=== PATIENT | female | born 1960 | race Caucasian/White ===

== ENCOUNTER → 2017-02-04 | Day surgery (SDC) | payer OTHER ==
--- NOTE | 2017-02-07 15:07 | PATH ---
Surgical Pathology Report Patient Name: IMAIN RUFF [facility]. Rec. #: [id number] /Age/Gender: 1960 (Age: 56) / F Account: [id number] Location: [place] Pathology Taken: 02/04/2017 Received: 02/07/2017 Reported: 02/07/2017 Physicians: Jass Villatoro M.D. Specimen(s) Received LEFT BREAST CORE BIOPSY 2:00 Clinical History Palpable mass; US: highly suspicious/malignant Final Diagnosis BREAST, LEFT, 2:00, 8-10 CM FROM NIPPLE, US GUIDED CORE BIOPSY: INVASIVE DUCTAL CARCINOMA, MODERATELY DIFFERENTIATED (SEE COMMENT). Comment: The greatest extent of invasive carcinoma in one core is 0.5 cm. ER, WV, Her2 IHC and Ki67 studies are pending; results will be reported separately in an addendum. Electronically Signed Davonte Mendiola M.D. Addendum Reported: 02/08/2017 Addendum Diagnosis Results of Estrogen Receptor (ER) and Progesterone Receptor (WV) studies performed at [facility] are as follows: ER (clone 6F11 mouse monoclonal antibody by [employer]): >95% nuclear staining with strong intensity (Positive). WV (clone16 mouse monoclonal antibody by [employer]): ~3-5% nuclear staining with moderate intensity (Positive). Positive and negative controls (internal if applicable) show appropriate results. Formalin fixation and cold ischemic times are within current ASCO/CAP recommendations for ER, WV and Her2 testing. Immunohistochemical stain for e-cadherin performed and interpreted at [facility] shows strong membranous staining in tumor cells supporting ductal phenotype. Davonte Mendiola M.D. Addendum Reported: 02/09/2017 Addendum Diagnosis Results of Her2 (IHC) & Ki-67 studies performed at [place], [place] ([id number]) are as follows: Her2 IHC (EP3 from [employer], formerly known as [id number], using Colon Polymer Refine detection kit): 2+ (Equivocal) Ki-67: up to 15-20% (Intermediate proliferation index) Results of Her2 FISH studies will be reported separately in an addendum. Positive and negative controls (internal if applicable) show appropriate results. Davonte Mendiola M.D. Addendum Reported: 02/14/2017 Addendum Diagnosis Results of Her2 FISH studies performed on block at [place], [place] ([id number]) are as follows: Her2: 2.5 CEP17: 1.6 Ratio: 1.6 Interpretation: Negative Davonte Mendiola M.D. Gross Description Received in formalin, labeled" left breast biopsy 2N 8-10" are multiple fragments of lemus tissue ranging from 0.4 to 0.7 cm in length and averaging 0.1 cm in diameter admixed with clotted blood. Submitted entirely in one cassette. Time to fixation: <1min Formalin fixation time: ~64h
--- NOTE | 2017-02-07 21:21 | OP ---
DATE OF OPERATION: 02/04/2017 PREOPERATIVE DIAGNOSES: Left breast mass, 2 o'clock, 8 to 10 cm from the nipple. POSTOPERATIVE DIAGNOSIS: Left breast mass, 2 o'clock, 8 to 10 cm from the nipple. PROCEDURE: Left ultrasound-guided core biopsy with bowtie clip placement. ANESTHESIA: Local. ATTENDING SURGEON: Edwin Manzo MD ESTIMATED BLOOD LOSS: Minimal. COMPLICATIONS: None. PROCEDURE: Patient was made aware of the risks and benefits of the procedure and consented. She was placed in the supine position. Under sterile conditions, with 1% lidocaine for local anesthesia, a small brannon was made in the skin. Using a 13-gauge suction biopsy device via lateral approach under ultrasound guidance, multiple cores were obtained and submitted to Pathology. Likewise under ultrasound guidance, a bowtie clip was placed into the biopsy region. Patient tolerated the procedure well. Steri-Strips and a sterile bandage was applied. We will contact her with the results. EDWIN MANZO M.D. [id number]
== END | disposition home or self-care (01) ==
LOC: FRADUS-SUR 15:47
PROVIDERS: ATTEND Surgery Surgical Oncology
PROC: 0HBU3ZX Excision of Left Breast, Percutaneous Approach, Diagnostic (ICD-10-PCS; principal; 2017-02-04)
DX: N63 Unspecified lump in breast (principal); C50.412 Malignant neoplasm of upper-outer quadrant of left female breast
CPT/HCPCS: 19083; 88305-TC; 88342-TC

== ENCOUNTER → 2017-05-31 | Day surgery (SDC) | payer OTHER ==
--- NOTE | 2017-05-17 11:06 | HP ---
Admitting History and Physical - Primary Care Physician PCP: Edwin Manzo - Admission Chief Complaint: left breast cancer History of Present Illness: Patient is a 57 yo female who was noted to have a left UOQ on self exam x 1.5 yrs. Mammogram and US confirmed a 2.0 cm irregular mass at 2 oclock. US guided core bx of this lesion was positive for invasive ductal carcinoma. ER/ TN positive HER 2 negative. MRI was c/w known cancer wtihout evidence of contralateral dz. Patient is now presenting for left WE with NL, SNBx, poss ANDx and intraop radiation. History Source: Patient Limitations to Obtaining History: No Limitations - Past Medical History Cardiovascular: Yes: HTN Home Medications - Allergies Allergies/Adverse Reactions: Allergies Allergy/AdvReac Type Severity Reaction Status Date / Time No Known Allergies Allergy Verified 05/17/17 11:06 - Home Medications Home Medications (free text): amlodipine Family Disease History - Family Disease History Family Disease History: CA: Father (renal) Other Family History: paternal and maternal aunt-breast cancer Review of Systems - Review of Systems Constitutional: reports: No Symptoms Cardiovascular: reports: No Symptoms Respiratory: reports: No Symptoms Physical Examination Constitutional: Yes: Well Nourished, Calm Breast(s): Yes: Other (No nipple discharge or retraction noted. No suspicious masses or adenopathy noted bilaterally. Left upper outer quad vague thickening noted.) Problem List - Problems (1) Breast cancer, left Code(s): C50.912 - MALIGNANT NEOPLASM OF UNSPECIFIED SITE OF LEFT FEMALE BREAST Qualifiers: Breast location: upper outer quadrant of breast Patient sex: female Assessment/Plan Plan: Left breast WE with NL, SNBx, possible ANDx and intraop radiation
[2017-05-26 11:56] VITALS: BMI 23.6
[~2017-05-31] MED LIST: BUPIVACAINE HCL/PF 0.25% (2.5MG/ML) 10 ML VIAL IJ ONE; BUPIVACAINE HCL/PF 2.5 MG/ML - 30 ML VIAL IJ ONE; DEXAMETHASONE SOD PHOSPHATE 4 MG/1 ML VIAL ONE; DEXTROSE 5%-0.45% SALINE 1,000 ML IV SCH; GUM MASTIC/STORAX/MSAL/ALCOHOL 1 DRP DROPSBTL MC ONE; ISOSULFAN BLUE 10 MG/ML VIAL SQ ONE; KETOROLAC TROMETHAMINE 30 MG/1 ML VIAL IVPUSH PRN; KETOROLAC TROMETHAMINE 30 MG/1 ML VIAL ONE; LACTATED RINGERS SOLUTION 1,000 ML IV SCH; LIDOCAINE 1%/EPI 1:100000 (20 ML MULTI DOSE VIAL) ONE; LIDOCAINE HCL/PF 2% SDV 5ML VIAL ONE; MIDAZOLAM HCL 2 MG/2 ML SINGLE DOSE VIAL ONE; ONDANSETRON 4 MG/2 ML VIAL IVPB PRN; ONDANSETRON 4 MG/2 ML VIAL IVPUSH PRN; ONDANSETRON 4 MG/2 ML VIAL ONE; PROMETHAZINE HCL 25 MG/1 ML VIAL IVPUSH PRN; PROPOFOL 20 ML ONE; ceFAZolin SODIUM 1 GM VIAL ONE; oxyCODONE HCL 5 MG TABLET ONE; oxyCODONE HCL 5 MG TABLET PO PRN
--- NOTE | 2017-05-31 17:43 | OP ---
DATE OF OPERATION: 05/31/2017 PREOPERATIVE DIAGNOSIS: Left breast cancer. POSTOPERATIVE DIAGNOSIS: Left breast cancer. PROCEDURE: Left mammographically localized partial mastectomy with sentinel node biopsy and complex tissue transfer. ANESTHESIA: General intubated. ATTENDING SURGEON: Anabel Victor MD APPLE TURNER: MARCIAL Londono ESTIMATED BLOOD LOSS: Minimal. COMPLICATIONS: None. DESCRIPTION OF OPERATION: Patient was made aware of the risks and benefits of the procedure and consented. Preoperatively, she went to the radiology suite where a needle was placed next to the index lesion as well as Nuclear Medicine where she was injected with radioactive tracer. She was then placed on the operating room table, and after general anesthesia was induced, the patient was intubated. Next, 2.5 mL of 1% isosulfan blue were locally infiltrated into the peritumoral tissues. The operative site was then prepped and draped in the usual sterile fashion. Waiting approximately 10 minutes, with gentle manual compression, a curvilinear incision was made in the left axilla. Using blunt and sharp dissection, tissues were dissected down where a cluster of radioactive lymph nodes were identified and surgically excised and submitted for permanent sectioning. No blue lymph nodes were identified, and after a resection of these nodes, the baseline radioactivity returned to less than 10% of the original. Palpation of the rest of the axilla revealed no other suspicious lymph nodes, either high in the axilla or in the level I. The wound was copiously irrigated with normal saline. Hemostasis maintained by electrocautery. The wound was then closed with deep 3-0 Vicryl, followed by a running subcuticular 4-0 Monocryl. The breast was then approached. Curvilinear incision was made next to the needle. Using electrocautery, thick skin flaps were made. The needle was withdrawn to the puncture site and wire to the wound. The tissues around the wire were then sharply excised and submitted with a short suture superior, long suture lateral. Specimen radiograph confirmed the presence of the index lesion and clip. Additional segments were taken superior, inferior, medial, lateral, deep, and anterior with clips at the new margin. Using electrocautery, the breast tissue was taken off the pectoralis muscle and chest wall in either direction for approximately 6-8 cm. This was then rotated into the surgical space and closed with multiple layers of figure-of-8 suture of 2-0 Vicryl. Skin was then closed with deep 3-0 Vicryl, followed by a running subcuticular 4-0 Monocryl. Steri-Strips and a sterile bandage as well as a compression bra were then provided, and the patient, having tolerated the procedure, was transferred to the recovery room in excellent condition. ANABEL MOSS M.D. [id number]
[2017-05-31 18:02] VITALS: TEMP 97.9
[2017-05-31 19:03] VITALS: BP 121/67; PULSE 82
--- NOTE | 2017-06-05 13:45 | PATH ---
Surgical Pathology Report Patient Name: IMANI RUFF [facility]. Rec. #: [id number] /Age/Gender: 1960 (Age: 57) / F Account: [id number] Location: [facility] AMBULATORY Taken: 05/31/2017 Received: 05/31/2017 Reported: 06/07/2017 Physicians: Edwin Manzo M.D. Specimen(s) Received A: LEFT AXILLARY SENTINEL NODES B: LEFT BREAST DEEP MARGIN C: LEFT BREAST SUPERIOR MARGIN D: LEFT BREAST MEDIAL MARGIN E: LEFT BREAST LATERAL MARGIN F: LEFT BREAST INFERIOR MARGIN G: LEFT BREAST ANTERIOR MARGIN H: LEFT BREAST WIDE EXCISION Clinical History Left breast carcinoma Final Diagnosis A. axillary sentinel nodes, left, excision: Metastatic carcinoma involving one of two lymph nodes (1/2); the largest focus of metastatic carcinoma measures 2 mm in greatest dimension (micrometastasis). (See note) No extranodal extension is identified. B. breast, left, deep margin, excision: Benign fibroadipose tissue and skeletal muscle. C. breast, left, superior margin, excision: Benign breast tissue. D. breast, left, medial margin, excision: Invasive ductal carcinoma, moderately differentiated, measuring 3 mm in greatest dimension. THE NEW margin is uninvolved by carcinoma; carcinoma is at 1 mm from the closest NEW margin. Remaining breast tissue shows usual AND papillary ductal hyperplasia and sclerosing adenosis. E. breast, left, lateral margin, excision: Benign predominantly fatty breast tissue. F. breast, left, inferior margin, excision: Benign predominantly fatty breast tissue. G. breast, left, anterior margin, excision: Benign predominantly fatty breast tissue. H. breast, left, wide excision: Invasive ductal carcinoma, moderately differentiated (tubule score: 3/3, nuclear grade: 2/3, mitotic score: 2/3; total Justine score 7/9). Invasive carcinoma measures 1.7 cm in greatest dimension, microscopically. Focal ductal carcinoma in situ (DCIS), CRIBRIFORM type, intermediate nuclear grade is present admixed with invasive carcinoma as a minor component. Surgical margins are uninvolved by carcinoma; carcinoma is at 1 mm from the closest (anterior) margin. see specimens b-g for final margins. No definitive lymphovascular invasion is identified. Prior biopsy site changes are present. Pathologic stage (pTNM): pT1c pN1mi See also invasive carcinoma case summary below. Comments Breast Invasive Carcinoma: Surgical Pathology Cancer Case Summary Based on AJCC/UICC TNM, 7th edition Procedure _X_ Excision with image-guided localization Lymph Node Sampling _X_ [place] lymph node(s) Specimen Laterality _X_ Left Tumor Size: Size of Largest Invasive Carcinoma: 1.7 cm Tumor Focality _X_ Single focus of invasive carcinoma Macroscopic and Microscopic Extent of Tumor Nipple _X_ Not applicable (excisions less than total mastectomy) Ductal Carcinoma In Situ (DCIS) _X_ DCIS is present _X_ as a minor component (< 25% of tumor) Histologic Type of Invasive Carcinoma : _X_ Invasive carcinoma of no special type (ductal, not otherwise specified) Histologic Grade: ([place] Histologic Score) Tubular Differentiation _X_ Score 3 Nuclear Pleomorphism _X_ Score 2 Mitotic Rate _X_ Score 2 Overall Grade _X_ Grade 2: scores of 6 or 7 (moderately differentiated) Margins _X_ Margins uninvolved by invasive carcinoma Distance from closest margin: 1 mm from final medial margin (D) _X_ Margins uninvolved by DCIS Distance from closest margin: 6 mm from closest anterior margin in wide excision H. Final anterior margin G is negative for DCIS. Lymph-Vascular Invasion _X_ Not identified Lymph Nodes Total number of lymph nodes examined (sentinel and nonsentinel): 2 Number of sentinel lymph nodes examined: 2 Number of lymph nodes with macrometastases ( > 2 mm): 0 Number of lymph nodes with micrometastases (>0.2 mm to 2 mm and/or >200cells):1 Number of lymph nodes with isolated tumor cells (=0.2 mm and =200 cells): 0 Size of largest metastatic deposit: 2 mm Extranodal Extension _X_ Not identified Pathologic Staging (pTNM) Primary Tumor (pT): pT1c Regional Lymph Nodes (pN): pN1mi (sn) Biomarker Studies Results of ER and DE studies performed on this specimen (block H2) at [facility] are as follows: ER (clone 6F11 mouse monoclonal antibody by [employer]): > 90 % nuclear staining with strong intensity (Positive). DE (clone16 mouse monoclonal antibody by [employer]): 30-40 % nuclear staining with moderate to strong intensity (Positive). Results of Her2 (IHC) & Ki-67 studies performed on this specimen (block H2) at [place], [place] ( [id number]) are as follows: Her2 IHC (EP3 from [employer], formerly known as [id number], using Colon Polymer Refine detection kit):0 (Negative). Ki67: 15-20% (Intermediate). Positive and negative controls (internal if applicable) show appropriate results. Formalin fixation and cold ischemic times are within current ASCO/CAP recommendations for ER, DE and Her2 testing. Electronically Signed Patricia Burgos M.D. Amendments Amended: 06/07/2017 Previous Signout Date: 06/05/2017 Comment: Clinical history - no neoadjuvant chemotherapy received by patient Gross Description A. Received in formalin, labeled, "left axillary sentinel nodes" are two lymph nodes, measuring 1.5 x 1 x 0.3 cm and 1 x 1 x 0.4 cm. The lymph nodes are bisected and entirely submitted in two cassettes. B. Received in formalin, labeled "left breast deep margin" is a 4.5 x 2.2 x 0.4 cm portion of fibrofatty tissue, with a clip marking the new margin, as per the surgeon. The new margin is inked green. The specimen is serially sectioned and entirely submitted in three cassettes. C. Received in formalin, labeled "left breast superior margin" is a 2.2 x 1.4 x 0.4 cm portion of fibrofatty tissue, with a clip marking the new margin, as per the surgeon. The new margin is inked green. The specimen is serially sectioned and entirely submitted in two cassettes. D. Received in formalin, labeled "left breast medial margin" is a 2.7 x 2.5 x 0.5 cm portion of fibrofatty tissue, with a clip marking the new margin, as per the surgeon. The new margin is inked green. Sectioning reveals foci of dense nodular fibrous to firm tissue. The specimen is serially sectioned and entirely submitted in three cassettes. E. Received in formalin, labeled "left breast lateral margin" is a 2.5 x 1.3 x 0.2 cm portion of fibrofatty tissue, with a clip marking the new margin, as per the surgeon. The new margin is inked green. The specimen is serially sectioned and entirely submitted in two cassettes. F. Received in formalin, labeled "left breast inferior margin" is a 2.5 x 2.3 x 0.3 cm portion of fibrofatty tissue, with a clip marking the new margin, as per the surgeon. The new margin is inked green. The specimen is serially sectioned and entirely submitted in two cassettes. G. Received in formalin, labeled "left breast anterior margin" is a 3 x 1.2 x 0.3 cm portion of fibrofatty tissue, with a clip marking the new margin, as per the surgeon. The new margin is inked green. The specimen is serially sectioned and entirely submitted in two cassettes. H. Received in formalin, labeled "left breast wide excision" is a 5.2 x 3.3 x 2.5 cm portion of fibrofatty tissue with a localizing needle in place. A long suture designates the lateral margin and a short suture indicates the superior margin, per the surgeon. The specimen is inked as follows: anterior- red, deep-black, superior-blue, inferior-green, medial-orange, lateral-yellow. Sectioning reveals a 2.0 x 1.8 x 1.5 cm ill-defined lemus firm mass which abuts the anterior margin and is at 0.5 cm from the inferior, superior and deep margins, 0.6 cm from the lateral margin and 1.2 cm from the medial margin. Remaining breast tissue is comprised predominantly of adipose tissue with scant admixed fibrous tissue. Scoop Machine Operator sections are submitted in five cassettes as follows: 1-mass with anterior and superior margins ; 2-mass with anterior and inferior margins; 3-mass with deep and superior margins; 4-medial margin; 5-lateral margin. Time to formalin fixation: 27 minutes Total formalin fixation time: approximately 34 hours (AE)
== END | disposition home or self-care (01) ==
LOC: FASU 06:46
PROVIDERS: ATTEND Surgery Surgical Oncology
PROC: 0HBY0ZZ Excision of Supernumerary Breast, Open Approach (ICD-10-PCS; principal; 2017-05-31 11:25)
PROC: 0JX60ZC Transfer Chest Subcutaneous Tissue and Fascia with Skin, Subcutaneous Tissue and Fascia, Open Approach (ICD-10-PCS; 2017-05-31 11:25)
DX: C50.412 Malignant neoplasm of upper-outer quadrant of left female breast (principal)
CPT/HCPCS: 19281; 78195-TC; 88307-TC; 88342-TC; 94760; A9541